=== PATIENT | female | born 1990 | race Caucasian/White ===

== ENCOUNTER → 2016-10-10 | Outpatient (CLI) | payer OTHER ==
[~2016-10-10] MED LIST: BCPILLS PO; CIPR-255 PO; FRCT/ PO; IBUP-103 PO; SUMA50TA15 PO
[2016-10-10 16:48] LABS: MEAN CELL VOLUME 84.3 fL (80-100); MEAN CORPUSCULAR HEMOGLOBIN 30.1 pg (25-34); MEAN CORPUSCULAR HGB CONC 35.7 g/dl (32-36); MEAN PLATELET VOLUME 12.4 fL (7.4-10.4); PLATELET COUNT 169 K/uL (130-400); RED BLOOD COUNT 4.39 M/uL (4.2-5.4); WHITE BLOOD COUNT 5.43 K/uL (4.8-10.8)
[2016-10-10 17:15] LABS: PREG INTERNAL NEGATIVE QC NEG CLEAR BACKGROUND; PREG INTERNAL POSITIVE QC POS CONTROL LINE
== END | disposition home or self-care (01) ==
LOC: C.LAB1850 16:03
PROVIDERS: ATTEND Obstetrics & Gynecology
DX: N93.9 Abnormal uterine and vaginal bleeding, unspecified (principal)

== ENCOUNTER → 2017-02-26 | Outpatient (CLI) | payer OTHER | END | disposition home or self-care (01) | LOC: C.LABSPEC 13:27 | PROVIDERS: ATTEND Physician Assistant | DX: N89.8 Other specified noninflammatory disorders of vagina (principal) ==

== ENCOUNTER 2023-11-13 11:47 | Inpatient (IN) ==
--- NOTE | 2023-11-10 16:08 | Anesthesiology Consultation ---
Date of Service November 10, 2023 Assessment & Plan (1) Encounter for pre-operative examination: - ER [facility] 10/20/23: "...Patient was seen during a time of extreme volume and extreme acuity. Nursing triage protocols were initiated labs and imaging was conducted by protocol in the triage area. Vital signs stable. Labs and imaging within normal limits with exception of the patient testing positive for influenza. Patient be discharged with prescription Tamiflu. DISCHARGE - Plan of care discussed with patient and questions answered. The patient was given both verbal and printed discharge instructions. The patient verbalized understanding and ability to comply. The patient is to seek outpatient follow up as noted in the discharge instructions. The patient verbalized understanding and ability to comply. The patient is discharged in stable condition. The patient was instructed to return for worsening symptoms..." - Per supervisor vat house on 11/10/23: No known infectious disease contacts, current infectious disease symptoms in past 10 days or COVID positive test result in the past 30 days. Chart Review Chart Review: entry level sales representative initiated History Surgery Operation Date: 11/14/23 10:10 Proposed Procedures p Section (Delivery of the Baby Through Abdominal Incision) - Crystal Castro MD, FACOG s Bilateral Tubal Ligation - Crystal Castro MD, FACOG Height/Weight Height: 5 ft 4.5 in Weight: 69.4 kg Allergies Allergy/AdvReac Type Severity Reaction Status Date / Time No Known Allergies Allergy Verified 11/10/23 15:36 Medications Home Medications Medication Instructions Recorded Confirmed Last Taken No Known Home Medications 11/10/23 11/10/23 Unknown Past Medical History Medical History Anxiety Endometriosis History of Escalante's palsy Hx of varicella Nephrolithiasis hx Past Family History Family History Other Bladder cancer Hypertension No significant family history Denies family history of Ovarian cancer Breast cancer Colorectal cancer Past Surgical History Surgical History History of colonoscopy History of dilatation and curettage History of esophagogastroduodenoscopy (EGD) History of laparoscopy History of tooth extraction Social History Smoking Status: Former smoker tobacco type: cigarettes Do You Dip or Chew Tobacco: No Smoking End Date: 10 years ago Hx Alcohol Use: No Hx Substance Use: No substance use type: does not use Lab Results Anesthesia Preop Results Results Anesthesia Widget: WBC 11.17 K/ul (4.8-10.8) H 10/20/23 Hgb 12.3 g/dl (12.0-16.0) 10/20/23 Hct 35.8 % (37.0-47.0) L 10/20/23 Plt 113 K/uL (130-400) L 10/20/23 Na 136 mmol/L (136-145) 10/20/23 K 3.4 mmol/L (3.5-5.1) L 10/20/23 Cl 105 mmol/L (98-107) 10/20/23 CO2 23 mmol/L (21-32) 10/20/23 BUN 4 mg/dl (6-23) L 10/20/23 Creat 0.47 mg/dl (0.6-1.2) L 10/20/23 Glucose Level 110 mg/dl (70-99(Fasting)) H 10/20/23 PT 9.9 Seconds (9.0-12.0) 10/20/23 PTT 25 Seconds (21-31) 10/20/23 INR 0.9 (0.9-1.1) 10/20/23 Urine Color Yellow 10/20/23 Urine Appearance Clear (Clear) 10/20/23 Urine pH 6.5 (4.5-7.5) 10/20/23 Urine Specific [place] 1.007 (1.000-1.030) 10/20/23 Urine Protein Negative (Negative) 10/20/23 Urine Glucose (UA) Negative (Negative) 10/20/23 Urine Ketones Negative (Negative) 10/20/23 Urine Blood Negative (Negative) 10/20/23 Urine Nitrite Negative (Negative) 10/20/23 Urine Bilirubin Negative (Negative) 10/20/23 Urine Urobilinogen Negative (Negative) 10/20/23 Urine Leukocyte Esterase 1+ (Negative) H 10/20/23 Urine WBC (Auto) 5-10 /hpf (0-5) H 10/20/23 Urine RBC (Auto) 0-4 /hpf (0-4) 10/20/23 Urine Hyaline Casts (Auto) 1-5 /lpf (0-5) 10/20/23 Urine Epithelial Cells (Auto) >30 /lpf (0-5) H 10/20/23 Urine Bacteria (Auto) 1+ (Negative) H 10/20/23 Coronavirus OC43 (PCR) Not Detected (NotDetected) 10/20/23 Coronavirus HKU1 (PCR) Not Detected (NotDetected) 10/20/23 Coronavirus 229E (PCR) Not Detected (NotDetected) 10/20/23 COVID-19 PCR Not Detected (NotDetected) 10/20/23 Coronavirus NL63 (PCR) Not Detected (NotDetected) 10/20/23 Testing Electrocardiogram Date: 10/20/23 Sinus tachycardia, rate 108 bpm Chest X-Ray Date: 10/20/23 No acute chest disease.
[2023-11-13] MEDS: LACTATED RINGER'S 1,000 ML IV ONE (12:11)
--- NOTE | 2023-11-13 12:23 | History & Physical Report ---
Date of Service November 13, 2023 Assessment & Plan (1) Delivery by elective section: (2) History of shoulder dystocia in prior : Plan to OR for elective C section and bilateral salpingectomies Consent signed Admission and Anticipated Discharge Date Admission Date: November 13, 2023 History of Present Illness Primary Care Provider: Emilie Pritchard, DO 33 y/o at 39. 1 weeks of gestation EVELIA:11/19/22. Here for elective C section and bilateral salpingectomies. Patient had hx of shoulder dystocia w/ clavicle fracture prev . Schedule for c section tomorrow. Today at OB visit, patient found on labor. Has been attending OB appointments regularly. Currently taking no medications. GBS negative, Rubella immune, BTG: A+ Contractions: yes Fluid or Blood loss: none Movement: active FHR baseline 145, moderate variability, accelerations present, decelerations absent OB Labs: Blood Type A Positive 04/15/23 Antibody Screen NEGATIVE 04/15/23 Hemoglobin 12.3 g/dl (12.0-16.0) 10/20/23 Hematocrit 35.8 % (37.0-47.0) L 10/20/23 Mean Corpuscular Volume 88.8 fL (80.0-100.0) 10/20/23 Platelet Count 113 K/uL (130-400) L 10/20/23 Rubella IgG Antibody Immune (Immune) 04/15/23 Rapid Plasma Reagin Nonreactive (Nonreactive) 04/15/23 Hepatitis B Surface Antigen Neg (Neg) 04/28/20 Hepatitis B Surface Antigen. NON-REACTIVE (NON-REACTIVE) 04/15/23 Hepatitis C Antibody (EIA) NON-REACTIVE (NON-REACTIVE) 04/15/23 HIV (1&2) Ab and P24 Ag, 4th Gener Neg (Neg) 04/28/20 HIV (1&2) Ag and Ab Confirmation NON-REACTIVE (NON-REACTIVE) 04/15/23 Glucose 1 Hour 50 gm Load 130 mg/dl (70-130) 08/29/23 Maternal Serum Alpha Fetoprotein 94.2 ng/mL 06/20/23 OB Optional Labs: Chlamydia trachomatis RNA Not Detected (NotDetected) 04/15/23 Neisseria gonorrhoeae RNA Not Detected (NotDetected) 04/15/23 Thyroid Stimulating Hormone (TSH) 2.550 uIu/ml (0.300-4.500) 10/01/19 Alpha Fetoprotein Triple Screen SEE NOTE 06/20/23 Labs Reviewed: cf/sma neg in prior - sln cfdna-low risk--mln afp neg--akh Allergies Allergy/AdvReac Type Severity Reaction Status Date / Time No Known Allergies Allergy Verified 11/13/23 11:05 Home Medications Medication Instructions Recorded Confirmed Type prenat.vits,chris,[id number] 1 tab PO DAILY 11/13/23 11/13/23 History Patient History Medical History Anxiety Endometriosis History of Escalante's palsy Hx of varicella Nephrolithiasis hx Surgical History History of colonoscopy History of dilatation and curettage History of esophagogastroduodenoscopy (EGD) History of laparoscopy History of tooth extraction Family History Other Bladder cancer Hypertension No significant family history Denies family history of Ovarian cancer Breast cancer Colorectal cancer Social History Smoking Status: Former smoker Smoking End Date: 10 years ago; Second Hand Exposure: No; Do You Dip or Chew Tobacco: No; Tobacco Cessation Education Requested by Patient: No Hx Alcohol Use: No Hx Substance Use: No Preferred Language: [place]an Communication Ability: Effective Independent Sales Representative Required: No Beliefs That Will Affect Care: None marital status: marital status details: Vladislav Childsher Jj (29) [phone] Current Living Situation: Spouse Current Living Situation Comment: 1 dtr current occupational status: employed current occupation: Inspection [employer] Feels Safe at Home: Yes Safety Concerns: Feels Safe At This Time Assistive Devices: None Review of Systems All systems reviewed & are unremarkable except as noted in HPI & below Physical Exam Physical Exam: General: patient resting comfortably, NAD, non-toxic in appearance, AA&O x 4, answers questions appropriately. Skin: warm, dry, intact Heart: +S1/S2, regular, no m/r/g Lungs: equal air entry bilaterally, no rales/rhonchi/wheezes Abd: +BS, soft, NT/ND, gravid uterus Ext: warm, no clubbing/cyanosis or edema Supervising Physician Co-Signing Physician Notes Resident Physician Supervision Note: I interviewed and examined the patient. Discussed with Dr. Mueller and agree with findings and plan as documented in the note. Any exceptions or clarifications are listed here: Planning due to prior dystocia with fracture. Currently 5cm per Haro in office, and essentially stable at 5/100/- 1 by Lavern. Care of other patients on the unit with NRF[facility] are causing us to currently hold on moving this patient to OR, while decision is made for order of delivery of multiple patients. She is tolerating contractions well and not making rapid progress. Pt is aware of reason for hold at this time. Documented By: Eliza Puckett MD, FACOG Resident Activity Tracking Resident Involvement: Resident Care Provided Care Provided: OB Delivery
[2023-11-13 12:44] LABS: Basophils # (auto) 0.04 K/uL (0.00-0.20); Basophils % (auto) 0.4 %; Eosinophils # (auto) 0.01 K/uL (0.00-0.50); Eosinophils % (auto) 0.1 %; Hematocrit (blood only) 35.1 % (37.0-47.0); Hemoglobin 11.7 g/dl (12.0-16.0); Immature Granulocytes # (auto) 0.08 K/uL (0.01-0.20); Immature Granulocytes % (auto) 0.8 %; Lymphocytes # (auto) 1.23 K/uL (1.20-3.40); Mean Corpuscular Hemoglobin 30.1 pg (25.0-34.0); Mean Corpuscular Hgb Conc 33.3 g/dL (32.0-36.0); Mean Corpuscular Volume 90.2 fL (80.0-100.0); Mean Platelet Volume 11.8 fL (9.4-12.4); Monocytes % (auto) 7.4 %; Neutrophils # (auto) 7.42 K/uL (1.40-6.50); Neutrophils % (auto) 78.3 %; Platelet Count 123 K/uL (130-400); RDW Coefficient of Variation 13.5 % (11.5-14.5); Red Blood Count 3.89 M/uL (4.20-5.40); White Blood Count 9.48 K/ul (4.8-10.8)
[2023-11-13] MEDS ORDERED: MoRPHine SULFATE PF 1 MG/ML 10 ML AMP/VIAL ONE (13:00)
[2023-11-13] MEDS ORDERED: fentaNYL citrate PF 100 MCG/2 ML VIAL ONE (13:00)
[2023-11-13] MEDS ORDERED: OXYTOCIN 10 UNITS/ML VIAL ONE (13:08)
[2023-11-13] MEDS ORDERED: ONDANSETRON INJ 2 MG/ML 2 ML VIAL ONE (13:08)
[2023-11-13] MEDS ORDERED: KETOROLAC 30 MG/ML VIAL ONE (13:08)
--- NOTE | 2023-11-13 13:16 | Anesthesiology Consultation ---
Date of Service November 13, 2023 Assessment & Plan (1) Encounter for pre-operative examination: Chart Review Chart Review: Acceptable Risk for Surgery and Patient NOT seen in Pre Admission Testing Consults Requested none History Surgery Operation Date: 11/13/23 13:00 Proposed Procedures p Section in LD - Eliza Puckett MD Operation Date: 11/14/23 08:50 Proposed Procedures p Section - Crystal Castro MD, FACOG s Bilateral Tubal Ligation - Crystal Castro MD, FACOG Height/Weight Height: 5 ft 4 in Weight: 67.585 kg Allergies Allergy/AdvReac Type Severity Reaction Status Date / Time No Known Allergies Allergy Verified 11/13/23 11:05 Medications Home Medications Medication Instructions Recorded Confirmed Last Taken prenat.vits,chris,[id number] 1 tab PO DAILY 11/13/23 11/13/23 10/30/23 Past Medical History Medical History History of Escalante's palsy Nephrolithiasis hx Anxiety Hx of varicella Endometriosis Past Family History Family History Other Bladder cancer Hypertension No significant family history Denies family history of Ovarian cancer Breast cancer Colorectal cancer Past Surgical History Surgical History History of esophagogastroduodenoscopy (EGD) History of colonoscopy History of laparoscopy History of dilatation and curettage History of tooth extraction Social History Smoking Status: Former smoker tobacco type: cigarettes Do You Dip or Chew Tobacco: No Smoking End Date: 10 years ago Hx Alcohol Use: No Hx Substance Use: No substance use type: does not use Physical Exam Vital Signs Last Vital Signs Temp 98.4 F 11/13/23 12:16 Testing Laboratory Results 11/13/23 12:21 Electrocardiogram Date: 10/20/23 Sinus tachycardia, rate 108 bpm Chest X-Ray Date: 10/20/23 No acute chest disease.
[2023-11-13] MEDS: ceFAZolin 2000MG 2,000 MG/15 ML SYR IV SCH (13:23)
[2023-11-13] MEDS: CITRIC ACID/SODIUM CITRATE 15 ML UDC PO ONE (13:25)
[2023-11-13] MEDS ORDERED: ePHEDrine sulfate 50 MG/ML AMP IV PRN (13:44)
[2023-11-13] MEDS ORDERED: NALOXONE HCL 1 MG in SODIUM CHLORIDE 0.9% 1,000 ML IV PRN (13:44)
[2023-11-13] MEDS ORDERED: HYDROmorphone INJ 0.5 MG/0.5 ML SYR IV PRN (13:44)
[2023-11-13] MEDS ORDERED: MoRPHine SULFATE PF 1 MG/ML 10 ML AMP/VIAL INT SPINAL ONE (13:44)
[2023-11-13] MEDS ORDERED: NALBUPHINE HCL 5 MG in SYRINGE 0 ML IV PRN (13:44)
[2023-11-13] MEDS ORDERED: NALOXONE HCL 0.4 MG/1 ML VIAL/CARP IV PRN (13:44)
[2023-11-13] MEDS ORDERED: LACTATED RINGER'S 500 ML IV PRN (13:44)
[2023-11-13] MEDS ORDERED: NALOXONE HCL 0.08 MG in SYRINGE 1.8 ML IV PRN (13:44)
[2023-11-13] MEDS ORDERED: ACETAMINOPHEN 1,000 MG/100 ML VIAL IV PRN (13:44)
[2023-11-13] MEDS ORDERED: NO NARCOTICS OR SEDATIVES SCH (13:45)
[2023-11-13] MEDS ORDERED: DC INTRASPINAL MORPHINE SCH (13:45)
[2023-11-13] MEDS ORDERED: SODIUM CHLORIDE 0.9% 1,000 ML IV SCH (13:45)
--- NOTE | 2023-11-13 14:43 | Operative Report ---
PG Post Operative Report Pre & Post Diagnosis Operation Date: 11/14/23 08:50 History of prior shoulder dystocia with fractured infant clavicle Desires primary elective Desires permanent sterilization I identified the patient and participated in the time-out.: Yes Procedure Operation Date: 11/14/23 08:50 Primary Elective Low Transverse Section Bilateral salpingectomy Surgeon Eliza Puckett MD Electrotype Molder Clau Monet Estimated Blood Loss 500 Findings Consistent with Post-Op Diagnosis Specimens Bilateral fallopian tubes Placenta Cord blood Anesthesia Type Spinal Complications none Disposition Accompanied Patient To Recovery: Yes Disposition: L&D Description of Procedure The patient was placed operating table in the supine position with a leftward tilt. She was prepped and draped in standard sterile fashion. The anesthetic was tested and found to be adequate. A time-out was held, identifying correct patient, procedure, positioning and preoperative antibiotics. There were no concerns. A Pfannenstiel skin incision was made with a knife and taken down to the underlying layer of fascia. The fascia was incised in the midline with the knife and taken out laterally with scissors. The superior edge of the fascial incision was grasped, elevated and dissected off the underlying rectus both superiorly and inferiorly. The muscles were bluntly in the midline. The peritoneum was entered bluntly. The incision was then stretched. The bladder retractor was placed. The vesicouterine peritoneum was identified, entered with scissors and taken out laterally with scissors. The bladder flap was created digitally. A hysterotomy incision was created transversely in the lower uterine segment, final entry being accomplished in a blunt manner with the keeler polygraph operator's fingers. Clear amniotic fluid was encountered. The keeler polygraph operator's hand was used to elevate the head to the hysterotomy. The head was delivered using mild fundal pressure, and the shoulders and body followed without difficulty. The cord was clamped and cut and the infant was then handed off to the awaiting hide dropper. Cord blood was obtained. The placenta was Manually extracted. The uterus was exteriorized and cleared of all clot and debris with moistened laparotomy sponges. The hysterotomy incision was repaired in two layers, the first in a running locked layer, the second in an imbricating layer. The ovaries and tubes were seen to be normal bilaterally. The uterus was gently replaced in the abdomen, and the gutters were cleared of clot and debris. A final inspection of the hysterotomy revealed good hemostas is. The rectus muscles were allowed to reapproximate naturally. The fascia was then reapproximated with 1 Vicryl in a running nonlocked manner. The fascia was examined and found to be free of defect following closure. The subcutaneous tissue was copiously irrigated and reapproximated with 0-chromic, then the skin edges were closed with 4-0 monocryl in a subcuticular fashion. A dermabond dressing was applied. The licona was found to be draining clear yellow urine at completion of the procedure. I attest to the content of the Intraoperative Record and any orders documented therein. Any exceptions are noted below. I attest to the content of the Intraoperative Record and any orders documented therein. Any exceptions are noted below.
[2023-11-13] MEDS ORDERED: HYDROCORTISONE ACETATE 25 MG SUPP PR PRN (14:51)
[2023-11-13] MEDS ORDERED: SENNA 8.6 MG TAB PO PRN (14:51)
[2023-11-13] MEDS ORDERED: MAGNESIUM HYDROXIDE SUSP 30 ML UDC PO PRN (14:51)
[2023-11-13] MEDS ORDERED: BENZOCAINE 20% SPRY 85 APPLN/85 GM CAN EXT PRN (14:51)
[2023-11-13] MEDS: OXYTOCIN 30 UNITS/LR 1,003 ML IV SCH (15:00)
--- NOTE | 2023-11-13 16:37 | Anesthesiology Progress Note ---
Date of Service November 13, 2023 Anesthesia Post Procedure Vital Signs Vital Signs: Temp Pulse BP Pulse Ox 11/13/23 16:29 81 100 11/13/23 16:24 65 100 11/13/23 16:19 60 100 11/13/23 16:14 75 100 11/13/23 16:09 61 100 11/13/23 16:04 78 100 11/13/23 16:02 67 119/59 L 11/13/23 15:59 84 100 11/13/23 15:54 63 100 11/13/23 15:49 62 100 11/13/23 15:44 64 100 11/13/23 15:39 68 100 11/13/23 15:34 83 99 11/13/23 15:31 67 105/72 11/13/23 15:29 65 100 11/13/23 15:24 67 100 11/13/23 15:21 60 102/69 11/13/23 15:19 74 99 11/13/23 15:11 60 107/69 11/13/23 15:01 82 102/67 11/13/23 14:51 78 112/68 11/13/23 14:41 81 107/65 11/13/23 14:40 81 100 11/13/23 14:35 72 100 11/13/23 14:30 97.5 F L 11/13/23 14:30 100 11/13/23 14:30 82 11/13/23 14:30 81 102/61 11/13/23 12:16 98.4 F Transfer of Care Handoff Completed per policy Notes Mental Status: alert / awake / arousable and participated in evaluation Patient Amnestic to Procedure: Yes Nausea / Vomiting: adequately controlled Pain: adequately controlled Airway Patency, RR, SpO2: stable & adequate BP & HR: stable & adequate Hydration State: stable & adequate Neuraxial Anesthesia: was administered and sensory block is resolving Anesthetic Complications: no major complications apparent and Pt Satisfied with anesthetic care
[2023-11-13] MEDS: ONDANSETRON INJ 2 MG/ML 2 ML VIAL IV PRN (17:49)
[2023-11-13] MEDS: SIMETHICONE 80 MG CHEW PO SCH (18:07)
[2023-11-13] MEDS: diphenhydrAMINE 50 MG/ML VIAL IV PRN (19:56)
[2023-11-13] MEDS: LACTATED RINGER'S 1,000 ML IV SCH (23:23)
[2023-11-14] MEDS: KETOROLAC 30 MG/ML VIAL IV PRN (04:07)
--- NOTE | 2023-11-14 05:49 | Obstetrical Progress Note ---
Date of Service November 14, 2023 Assessment & Plan (1) Encounter for care after hospital delivery: Plan: encourage ambulation remove licona today Rubella immune Rh+ Vitals stable Hgb reviewed Continue pain management Admission and Anticipated Discharge Date Admission Date: November 13, 2023 Supervising Physician Co-Signing Physician Notes Resident Physician Supervision Note: I interviewed and examined the patient. Discussed with Dr. Monet and agree with findings and plan as documented in the note. Any exceptions or clarifications are listed here: [ ] Documented By: Eliza Puckett MD, FACOG Subjective 33yo s/p 11/13 post op day 1 pain well controlled licona in, no gas or bm, planning to formula feed, lochia normal no fever chills, nausea, vomiting, headache, shortness of breath Review of Systems Review of Systems: as per hpi Physical Exam Constitutional: Well appearing in no acute distress Respiratory: lungs clear to auscultation bilaterally Cardiovascular: regular rate and rhythm, no edema Gastrointestinal (Abdomen): normal bowel sounds, soft, nontender, nondistended Genitourinary: incision site c/d/i, fundus firm w/ palpation Results & Data Vital Signs (Past 12 Hours) Vital Signs Temp Pulse Resp BP Pulse Ox O2 Del Method 11/14/23 05:38 18 100 11/14/23 04:05 18 100 11/14/23 03:14 36.7 C 90 18 109/71 100 Room Air 11/14/23 03:10 20 99 11/14/23 02:00 18 99 11/14/23 01:06 18 100 11/14/23 00:00 18 100 11/13/23 23:00 18 100 11/13/23 23:00 36.7 C 87 18 116/74 100 Room Air 11/13/23 22:10 18 100 11/13/23 21:20 20 98 11/13/23 20:15 20 100 11/13/23 19:50 18 100 11/13/23 19:50 36.7 C 74 18 120/80 100 Room Air 11/13/23 18:00 18 99 Resident Activity Tracking Resident Involvement: Resident Care Provided Care Provided: OB Delivery
[2023-11-14 07:12] LABS: Basophils # (auto) 0.02 K/uL (0.00-0.20); Basophils % (auto) 0.2 %; Eosinophils # (auto) 0.01 K/uL (0.00-0.50); Eosinophils % (auto) 0.1 %; Hematocrit (blood only) 31.2 % (37.0-47.0); Hemoglobin 10.6 g/dl (12.0-16.0); Immature Granulocytes # (auto) 0.07 K/uL (0.01-0.20); Immature Granulocytes % (auto) 0.7 %; Lymphocytes # (auto) 1.29 K/uL (1.20-3.40); Lymphocytes % (auto) 12.4 %; Mean Corpuscular Hemoglobin 30.3 pg (25.0-34.0); Mean Corpuscular Volume 89.1 fL (80.0-100.0); Monocytes # (auto) 0.72 K/uL (0.11-0.59); Monocytes % (auto) 6.9 %; Neutrophils # (auto) 8.26 K/uL (1.40-6.50); Neutrophils % (auto) 79.7 %; Platelet Count 125 K/uL (130-400); RDW Coefficient of Variation 13.6 % (11.5-14.5); RDW Standard Deviation 43.8 fL (36.4-46.3); White Blood Count 10.37 K/ul (4.8-10.8)
[2023-11-14] MEDS: DIPHTHER/TETAN/PERTUS Vaccine (Tdap, Adol/Adult) 0.5mL IM ONE (07:16)
[2023-11-14] MEDS ORDERED: ONDANSETRON INJ 2 MG/ML 2 ML VIAL IV PRN (07:45)
[2023-11-14] MEDS ORDERED: diphenhydrAMINE Capsule 25 MG CAP PO PRN (07:45)
[2023-11-14] MEDS ORDERED: diphenhydrAMINE 50 MG/ML VIAL IV PRN (07:45)
[2023-11-14] MEDS ORDERED: KETOROLAC 30 MG/ML VIAL IV PRN (07:45)
[2023-11-14] MEDS ORDERED: PROMETHAZINE HCL 25 MG in SODIUM CHLORIDE 0.9% 50 ML IV PRN (07:45)
[2023-11-14] MEDS: PRENATAL VITAMIN 1 TAB PO SCH (09:28)
[2023-11-14] MEDS: FERROUS SULFATE 325 MG TAB PO SCH (09:28)
[2023-11-14] MEDS: DOCUSATE SODIUM 100 MG CAP PO SCH (09:29)
[2023-11-14] MEDS: IBUPROFEN 600 MG TAB PO PRN (09:33)
[2023-11-14] MEDS: oxyCODONE/ACETAMINOPHEN 5mg/325mg TAB PO PRN (16:41)
[2023-11-14] MEDS: bisacodyL 5 MG TABEC PO SCH (20:54)
--- NOTE | 2023-11-15 06:45 | Obstetrical Progress Note ---
Date of Service November 15, 2023 Assessment & Plan (1) Encounter for care after hospital delivery: Plan: 33 yo [id number] op day 1 s/p encourage ambulation Rubella immune Rh+ Vitals stable Hgb reviewed Continue pain management Discharge home today, instructions reviewed Plan Resident Physician Supervision Note: I was present with Dr. Garcia during the history and exam. I discussed the case with the resident and agree with the findings and plan as documented in the note. Any exceptions or clarifications are listed here: stable doing well, wants to go home, she is eating, voiding ambulating. pain well controlled. hgb pending. abd soft ff 2 down nt, incision c/d/i, ext nt calves pod#2 s/p c/s, instructions reviewed, f/u 6wk pp check. checked on pa pdmp and no issues. Documented By: Suzi Maddox MD, FACOG Admission and Anticipated Discharge Date Admission Date: November 13, 2023 Subjective 33 yo [id number] op day 2 s/p Ambulation: ambulating normally Voiding: no voiding problems Passing Gas:: Yes Diet Tolerance:: regular diet Lochia:: Small Feeding Type:: bottle feeding Current Pain Level: controlled with pain meds Resting comfortably this AM in NAD. Denies MCDONALD, CP, SOB, N/V/D, LE pain/swelling. Review of Systems Review of Systems: as per hpi Physical Exam Physical Exam: General: patient resting comfortably, NAD, non-toxic in appearance, AA&O x 4, answers questions appropriately. Heart: +S1/S2, regular, no m/r/g Lungs: equal air entry bilaterally, no rales/rhonchi/wheezes Abd: +BS, soft, NT/ND, gravid uterus, incision clean, no bleeding, no signs of infection Results & Data Vital Signs (Past 12 Hours) Vital Signs Temp Pulse Resp BP Pulse Ox O2 Del Method 11/14/23 23:20 36.5 C 72 18 109/69 98 Room Air 11/14/23 20:00 36.5 C 77 16 113/76 98 Room Air Resident Activity Tracking Resident Involvement: Resident Care Provided Care Provided: OB Delivery
[2023-11-15 08:40] LABS: Hematocrit (blood only) 30.6 % (37.0-47.0); Hemoglobin 10.2 g/dl (12.0-16.0)
[2023-11-15] MEDS ORDERED: bisacodyL 10 MG SUPP PR PRN (14:16)
--- NOTE | 2023-11-18 15:46 | Discharge Summary ---
Date of Service November 18, 2023 Admission HPI Per Admitting Provider 33 y/o at 39. 1 weeks of gestation EVELIA:11/19/22. Here for elective C section and bilateral salpingectomies. Patient had hx of shoulder dystocia w/ clavicle fracture prev . Schedule for c section tomorrow. Today at OB visit, patient found on labor. Has been attending OB appointments regularly. Currently taking no medications. GBS negative, Rubella immune, BTG: A+ Contractions: yes Fluid or Blood loss: none Movement: active FHR baseline 145, moderate variability, accelerations present, decelerations absent OB Labs: Blood Type A Positive 04/15/23 Antibody Screen NEGATIVE 04/15/23 Hemoglobin 12.3 g/dl (12.0-16.0) 10/20/23 Hematocrit 35.8 % (37.0-47.0) L 10/20/23 Mean Corpuscular Volume 88.8 fL (80.0-100.0) 10/20/23 Platelet Count 113 K/uL (130-400) L 10/20/23 Rubella IgG Antibody Immune (Immune) 04/15/23 Rapid Plasma Reagin Nonreactive (Nonreactive) 04/15/23 Hepatitis B Surface Antigen Neg (Neg) 04/28/20 Hepatitis B Surface Antigen. NON-REACTIVE (NON-REACTIVE) 04/15/23 Hepatitis C Antibody (EIA) NON-REACTIVE (NON-REACTIVE) 04/15/23 HIV (1&2) Ab and P24 Ag, 4th Gener Neg (Neg) 04/28/20 HIV (1&2) Ag and Ab Confirmation NON-REACTIVE (NON-REACTIVE) 04/15/23 Glucose 1 Hour 50 gm Load 130 mg/dl (70-130) 08/29/23 Maternal Serum Alpha Fetoprotein 94.2 ng/mL 06/20/23 OB Optional Labs: Chlamydia trachomatis RNA Not Detected (NotDetected) 04/15/23 Neisseria gonorrhoeae RNA Not Detected (NotDetected) 04/15/23 Thyroid Stimulating Hormone (TSH) 2.550 uIu/ml (0.300-4.500) 10/01/19 Alpha Fetoprotein Triple Screen SEE NOTE 06/20/23 Labs Reviewed: cf/sma neg in prior - sln cfdna-low risk--mln afp neg--ak Discharge Data Consultations 11/13/23 12:03 Consult Anesthesiology Stat Procedures Performed Operation Date: 11/14/23 08:50 <No data on this case meets the specified criteria> Hospital Course (1) Encounter for care after hospital delivery: 33 yo [id number] op day 1 s/p encourage ambulation Rubella immune Rh+ Vitals stable Hgb reviewed Continue pain management Discharge home today, instructions reviewed Plan Resident Physician Supervision Note: I was present with Dr. Garcia during the history and exam. I discussed the case with the resident and agree with the findings and plan as documented in the note. Any exceptions or clarifications are listed here: stable doing well, wants to go home, she is eating, voiding ambulating. pain well controlled. hgb pending. abd soft ff 2 down nt, incision c/d/i, ext nt calves pod#2 s/p c/s, instructions reviewed, f/u 6wk pp check. checked on pa pdmp and no issues. Documented By: Suzi Maddox MD, FACOG Supervising Physician Co-Signing Physician Notes Resident Physician Supervision Note: I interviewed and examined the patient. Discussed with Dr. Monet and agree with findings and plan as documented in the note. Any exceptions or clarifications are listed here: [ ] Documented By: Eliza Puckett MD, FACOG Coding Level of Care Code None Diagnoses Encounter for care after hospital delivery Z39.2
== END 2023-11-15 13:45 | disposition home or self-care (01) | DRG 785 ==
LOC: 4S1 11:47 → 4E2 16:30 → EDSTATUS 11-14 10:10
PROC: M.PPTLD (2023-11-13 13:00)